=== PATIENT | male | born 1950 | race Caucasian/White ===

== ENCOUNTER 2016-08-18 15:46 | Outpatient (CLI) | payer OTHER | END 2016-08-18 15:47 | disposition home or self-care (01) | LOC: SC 15:46 | PROVIDERS: ATTEND Nurse Practitioner Family | DX: G47.33 Obstructive sleep apnea (adult) (pediatric) (principal) | CPT/HCPCS: 99212; 99213 ==

== ENCOUNTER 2017-02-06 17:22 | Outpatient (CLI) | payer OTHER | END 2017-02-06 17:23 | disposition critical access hospital (66) | LOC: EMS 17:22 | PROVIDERS: ATTEND Surgery | DX: R00.8 Other abnormalities of heart beat (principal) | CPT/HCPCS: A0425; A0427 ==

== ENCOUNTER 2017-02-06 18:14 | Emergency (ER) | payer OTHER ==
[2017-02-06] MEDS ORDERED: SODIUM CHLORIDE 0.9% 1,000 ML IV ONE (18:21)
--- NOTE | 2017-02-06 18:23 | ED Physician Documentation ---
History of Present Illness - Stated complaint Stated Complaint: AFIB/CP - Chief complaint Chief Complaint: Cardiac - History obtained from History obtained from: Patient - History of Present Illness Timing: Today Pain level max: 0 Pain level now: 0 Improved by: nothing Worsened by: nothing - Additonal information Additional information: Patient is a 66-year-old male who presents to the emergency department with paroxysmal atrial fibrillation. States this happens a few times a year. [place] himself entered the atrial fibrillation for approximately 4:00 today. He is not anticoagulated. No chest pain, no shortness of breath. Did feel slightly lightheaded. Also had decreased appetite which is normally how he feels when he goes into atrial fib. EMS arrived, heart rate 150-160s, given Cardizem and rate slowed. Currently states that he is feeling better. Review of Systems Constitutional: denies: Fever, Chills Nose: denies: Rhinorrhea / runny nose, Congestion Respiratory: denies: Cough GI: denies: Nausea, Vomiting, Diarrhea : denies: Dysuria Skin: denies: Rash Musculoskeletal: denies: Neck pain, Back pain Neurologic: denies: Headache PD PAST MEDICAL HISTORY - Past Medical History Past Medical History: Yes Cardiovascular: High cholesterol, Atrial fibrillation : Benign prostate hypertrophy - Past Surgical History Past Surgical History: Yes Ortho: Knee replacement - Present Medications Home Medications: Ambulatory Orders Medication Instructions Recorded Confirmed Aspirin 81 mg PO DAILY 02/06/17 02/06/17 Simvastatin 20 mg PO DAILY 02/06/17 02/06/17 Tamsulosin HCl [Flomax] 0.4 mg PO DAILY 02/06/17 02/06/17 [id number] CD [Cardizem Cd] 120 mg PO DAILY 02/06/17 02/06/17 - Allergies Allergies/Adverse Reactions: Allergies Allergy/AdvReac Type Severity Reaction Status Date / Time No Known Drug Allergies Allergy Verified 02/06/17 18:17 - Social History Does the pt smoke?: No Smoking Status: Never smoker Does the pt have substance abuse?: No PD ED PE NORMAL - Vitals Vital signs reviewed: Yes - General General: Alert and oriented X 3, No acute distress - HEENT HEENT: Moist mucous membranes - Neck Neck: Supple, no meningeal sign - Cardiac Cardiac: Strong equal pulses, Other (irregular, tachycardic) - Respiratory Respiratory: No respiratory distress, Clear bilaterally - Abdomen Abdomen: Soft, Non tender, Non distended - Derm Derm: Warm and dry - Neuro Neuro: Alert and oriented X 3 - Psych Psych: Normal mood, Normal affect Results - Vitals Vitals: Vital Signs - 24 hr 02/06/17 02/06/17 02/06/17 18:13 18:35 18:39 Temperature 37.0 C Heart Rate 78 134 H 123 H Respiratory 18 16 17 Rate Blood Pressure 124/77 101/53 L 91/65 O2 Saturation 96 96 96 02/06/17 02/06/17 02/06/17 18:42 18:59 19:17 Temperature 37.0 C Heart Rate 124 H 112 H 20 L Respiratory 16 17 18 Rate Blood Pressure 107/78 99/65 104/63 O2 Saturation 97 96 100 02/06/17 19:18 Temperature Heart Rate 78 Respiratory 18 Rate Blood Pressure 104/63 O2 Saturation 100 Oxygen O2 Source Room air - EKG (time done) 1814 Rate: Rate (enter#) (137) Rhythm: Atrial fibrillation (with rVR) [place]: Normal QRS: Normal Ischemia: Normal ST segments Computer interpretation: Agree with computer 1910 Rate: Rate (enter#) (80) Rhythm: NSR [place]: Normal Intervals: Normal [place] QRS: Normal Ischemia: Normal ST segments Computer interpretation: Agree with computer - Labs Labs: Laboratory Tests 02/06/17 02/06/17 02/06/17 18:31 18:31 18:31 WBC 9.1 RBC 5.41 Hgb 14.7 Hct 44.8 MCV 82.9 MCH 27.3 MCHC 32.9 RDW 14.8 Plt Count 162 MPV 8.9 Neut # 8.3 H Lymph # 0.4 L [place] # 0.3 Eos # 0.0 Baso # 0.0 Absolute Nucleated RBC 0.00 Nucleated RBC % 0.0 Sodium 135 Potassium 3.8 Chloride 105 Carbon Dioxide 20 L Anion Gap 10.0 BUN 16 Creatinine 1.0 Estimated GFR (MDRD) 75 L Glucose 106 H Calcium 8.6 Phosphorus 2.3 L Magnesium 1.8 Total Bilirubin 0.7 AST 32 ALT 32 Alkaline Phosphatase 71 Troponin I < 0.04 Total Protein 6.7 Albumin 4.0 Globulin 2.7 Albumin/Globulin Ratio 1.5 Lipase 25 PD MEDICAL DECISION MAKING - ED course Complexity details: reviewed results, re-evaluated patient, considered differential, d/w patient, d/w family ED course: Patient is a 66-year-old male who presents to the emergency department with atrial fibrillation with rapid ventricular response. Rate decreased with Cardizem with EMS. He was then converted chemically in the emergency department with procainamide. Patient is back in a sinus rhythm. Is asymptomatic. Never had chest pain. We will have him follow-up with his doctor for further evaluation and care. No significant lab findings. Patient and family counseled regarding signs and symptoms for which I believe and urgent re-evaluation would be necessary. Patient with good understanding of and agreement to plan and is comfortable going home at this time This document was made in part using voice recognition software. While efforts are made to proofread this document, sound alike and grammatical errors may occur. Departure - Departure Disposition: 01 Home, Self Care Clinical Impression: Atrial fibrillation with RVR Atrial fibrillation Qualifiers: Atrial fibrillation type: paroxysmal Qualified Code(s): I48.0 - Paroxysmal atrial fibrillation Condition: Good Instructions: ED Afib Follow-Up: Clay Ford MD [Primary Care Provider] - Within 1 week Comments: Return if you worsen. You converted back to sinus rhythm tonight with procainamide. Continue your normal home medications. Discharge Date/Time: 02/06/17 19:45
[2017-02-06] MEDS ORDERED: PROCAINAMIDE 1,000 MG/10 ML SYRINGE ONE (18:31)
[2017-02-06 18:37] LABS: BASOPHILS % (AUTO) 0.2 %; EOSINOPHILS % (AUTO) 0.5 %; HCT - HEMATOCRIT 44.8 % (42.0-52.0); HGB - HEMOGLOBIN 14.7 g/dL (14.0-18.0); LYMPHOCYTES # (AUTO) 0.4 10^3/uL (1.5-3.5); LYMPHOCYTES % (AUTO) 4.2 %; MEAN CORPUSCULAR HEMOGLOBIN 27.3 pg (27.0-31.0); MEAN CORPUSCULAR HGB CONC 32.9 g/dL (32.0-36.0); MEAN CORPUSCULAR VOLUME 82.9 fL (80.0-94.0); MEAN PLATELET VOLUME 8.9 fL (7.4-11.4); MONOCYTES # (AUTO) 0.3 10^3/uL (0.0-1.0); MONOCYTES % (AUTO) 3.8 %; NEUTROPHILS # (AUTO) 8.3 10^3/uL (1.5-6.6); NEUTROPHILS % (AUTO) 91.3 %; RED BLOOD COUNT 5.41 10^6/uL (4.70-6.10); RED CELL DISTRIBUTION WIDTH 14.8 % (12.0-15.0); UNCORRECTED WHITE BLOOD COUNT 9.1 x10^3/uL; WHITE BLOOD COUNT 9.1 x10^3/uL (4.8-10.8)
[2017-02-06] MEDS ORDERED: ASPIRIN CHEW 81 MG TABLET PO STA (18:43)
[2017-02-06 18:55] LABS: ALBUMIN/GLOBULIN RATIO 1.5 (1.0-2.2); BILIRUBIN,TOTAL 0.7 mg/dL (0.2-1.0); CALCIUM 8.6 mg/dL (8.5-10.3); MAGNESIUM 1.8 mg/dL (1.7-2.8); PHOSPHORUS 2.3 mg/dL (2.5-4.6); POTASSIUM 3.8 mmol/L (3.5-5.0); TOTAL PROTEIN 6.7 g/dL (6.7-8.2)
[2017-02-06] MEDS ORDERED: ASPIRIN CHEW 81 MG TABLET ONE (18:57)
[2017-02-06] MEDS ORDERED: PROCAINAMIDE 1,000 MG in SODIUM CHLORIDE 0.9% 240 ML IV SCH (19:00)
[2017-02-06 19:18] VITALS: BP 104/63
== END 2017-02-06 19:45 | disposition home or self-care (01) ==
LOC: EDUNIT# → ED 18:14
DX: I48.0 Paroxysmal atrial fibrillation (principal); E78.00 Pure hypercholesterolemia, unspecified; N40.0 Benign prostatic hyperplasia without lower urinary tract symptoms; Z79.82 Long term (current) use of aspirin
CPT/HCPCS: 36415; 80053; 83690; 83735; 84100; 84484; 85025; 93005; 99284; A9270

== ENCOUNTER 2017-02-08 02:11 | Outpatient (CLI) | payer OTHER | END 2017-02-08 02:12 | disposition critical access hospital (66) | LOC: EMS 02:11 | PROVIDERS: ATTEND Surgery | DX: R00.2 Palpitations (principal) | CPT/HCPCS: A0425; A0427 ==

== ENCOUNTER 2017-02-08 02:37 | Emergency (ER) | payer OTHER ==
[2017-02-08] MEDS ORDERED: PROCAINAMIDE 1,000 MG in SODIUM CHLORIDE 0.9% 240 ML IV STA (02:45)
[2017-02-08] MEDS ORDERED: PROCAINAMIDE 1,000 MG/10 ML SYRINGE ONE (02:54)
[2017-02-08 03:02] LABS: BASOPHILS # (AUTO) 0.1 10^3/uL (0.0-0.1); BASOPHILS % (AUTO) 1.2 %; EOSINOPHILS # (AUTO) 0.1 10^3/uL (0.0-0.7); EOSINOPHILS % (AUTO) 2.6 %; HCT - HEMATOCRIT 41.9 % (42.0-52.0); HGB - HEMOGLOBIN 13.6 g/dL (14.0-18.0); LYMPHOCYTES % (AUTO) 19.3 %; MEAN CORPUSCULAR HEMOGLOBIN 26.8 pg (27.0-31.0); MEAN CORPUSCULAR HGB CONC 32.5 g/dL (32.0-36.0); MEAN CORPUSCULAR VOLUME 82.4 fL (80.0-94.0); MONOCYTES # (AUTO) 0.6 10^3/uL (0.0-1.0); NEUTROPHILS # (AUTO) 3.5 10^3/uL (1.5-6.6); NEUTROPHILS % (AUTO) 64.9 %; NUCLEATED RED BLOOD CELLS AUTO 0.1 /100WBC; RED BLOOD COUNT 5.08 10^6/uL (4.70-6.10); UNCORRECTED WHITE BLOOD COUNT 5.3 x10^3/uL; WHITE BLOOD COUNT 5.3 x10^3/uL (4.8-10.8)
[2017-02-08 03:13] LABS: ALBUMIN/GLOBULIN RATIO 1.4 (1.0-2.2); BILIRUBIN,TOTAL 0.5 mg/dL (0.2-1.0); CALCIUM 8.5 mg/dL (8.5-10.3); CREATININE 0.9 mg/dL (0.6-1.2); MAGNESIUM 1.9 mg/dL (1.7-2.8); PHOSPHORUS 2.9 mg/dL (2.5-4.6); POTASSIUM 3.4 mmol/L (3.5-5.0); TOTAL PROTEIN 6.5 g/dL (6.7-8.2)
--- NOTE | 2017-02-08 03:13 | ED Physician Documentation ---
PD HPI CHEST PAIN - Stated complaint Stated Complaint: PALPITATIONS - Chief complaint Chief Complaint: Cardiac - History obtained from History obtained from: Patient, EMS - History of Present Illness Timing - onset: Today Timing - onset during: Rest Timing - details: Abrupt onset, Still present Worsened by: Palpation Associated symptoms: No: Shortness of air, Diaphoresis, Nausea, Vomiting, Feeling faint / dizzy Similar symptoms before: Work up / diagnostics, Treatment Recently seen: Emergency Dept - Additional information Additional information: Patient is a 66 year old male with a history of Afib who is presenting to the emergency department for rapid heart rate. Patient states that he woke up from sleep and flet like his heart was racing so he called ems. ems states that his initial heart rate was between 110 to 170. Patient denied any chest pain, shortness of breath or other complaints. Review of Systems Constitutional: denies: Fever, Chills Eyes: reports: Reviewed and negative Ears: reports: Reviewed and negative Nose: reports: Reviewed and negative Throat: reports: Reviewed and negative Cardiac: reports: Palpitations. denies: Chest pain / pressure, Pedal edema, Calf pain Respiratory: denies: Dyspnea, Cough, Wheezing GI: denies: Nausea, Vomiting : reports: Reviewed and negative Skin: denies: Rash, Lesions Musculoskeletal: denies: Neck pain, Back pain, Extremity pain Neurologic: denies: Generalized weakness, Focal weakness Immunocompromised: denies: Immunocompromised PD PAST MEDICAL HISTORY - Past Medical History Past Medical History: Yes Cardiovascular: High cholesterol, Atrial fibrillation : Benign prostate hypertrophy - Past Surgical History Past Surgical History: Yes Ortho: Knee replacement - Present Medications Home Medications: Ambulatory Orders Medication Instructions Recorded Confirmed Aspirin 81 mg PO DAILY 02/06/17 02/08/17 Simvastatin 20 mg PO DAILY 02/06/17 02/08/17 Tamsulosin HCl [Flomax] 0.4 mg PO DAILY 02/06/17 02/08/17 [email or web address] CD [Cardizem Cd] 120 mg PO DAILY 02/06/17 02/08/17 - Allergies Allergies/Adverse Reactions: Allergies Allergy/AdvReac Type Severity Reaction Status Date / Time No Known Drug Allergies Allergy Verified 02/08/17 02:41 - Social History Does the pt smoke?: No Smoking Status: Never smoker Does the pt drink ETOH?: Yes Does the pt have substance abuse?: No - POLST Patient has POLST: No PD ED PE NORMAL - Vitals Vital signs reviewed: Yes - General General: Alert and oriented X 3, No acute distress, Well developed/nourished - HEENT HEENT: Atraumatic, PERRL, Moist mucous membranes - Neck Neck: Supple, no meningeal sign, No JVD - Respiratory Respiratory: No respiratory distress, Clear bilaterally - Abdomen Abdomen: Soft, Non tender, Non distended - Derm Derm: Normal color, Warm and dry, No rash - Extremities Extremities: No deformity, No edema, No calf tenderness / cord - Neuro Neuro: Alert and oriented X 3, No motor deficit, No sensory deficit, Normal speech Eye Opening: Spontaneous Motor: Obeys Commands Verbal: Oriented GCS Score: 15 - Psych Psych: Normal mood PD ED PE EXPANDED - Cardiac Cardiac: Tachy, Irregularly irregular Results - Vitals Vitals: Vital Signs - 24 hr 02/08/17 02/08/17 02/08/17 02:37 03:07 03:20 Temperature 36.8 C Heart Rate 158 H 155 H 81 Respiratory 18 17 16 Rate Blood Pressure 121/95 H 96/71 112/70 O2 Saturation 96 97 97 02/08/17 03:41 Temperature Heart Rate 81 Respiratory 15 Rate Blood Pressure 113/74 O2 Saturation 97 Oxygen O2 Source Room air - EKG (time done) 0240 Rate: Rate (enter#) (155) Rhythm: Atrial fibrillation [place]: Normal Intervals: Normal [place] Ischemia: ST depression Compare to prior EKG: Changed from prior EKG 0325 Rate: Rate (enter#) (80) [place]: Normal Intervals: Normal [place] QRS: Normal Ischemia: Normal ST segments Compare to prior EKG: Changed from prior EKG - Labs Labs: Laboratory Tests 02/08/17 02/08/17 02/08/17 02:56 02:56 02:56 WBC 5.3 RBC 5.08 Hgb 13.6 L Hct 41.9 L MCV 82.4 MCH 26.8 L MCHC 32.5 RDW 15.0 Plt Count 160 MPV 9.0 Neut # 3.5 Lymph # 1.0 L [place] # 0.6 Eos # 0.1 Baso # 0.1 Absolute Nucleated RBC 0.00 Nucleated RBC % 0.1 Sodium 138 Potassium 3.4 L Chloride 110 Carbon Dioxide 19 L Anion Gap 9.0 BUN 14 Creatinine 0.9 Estimated GFR (MDRD) 85 L Glucose 96 Calcium 8.5 Phosphorus 2.9 Magnesium 1.9 Total Bilirubin 0.5 AST 28 ALT 28 Alkaline Phosphatase 72 Troponin I < 0.04 Total Protein 6.5 L Albumin 3.8 Globulin 2.7 Albumin/Globulin Ratio 1.4 Lipase 27 TSH 02/08/17 02:56 WBC RBC Hgb Hct MCV MCH MCHC RDW Plt Count MPV Neut # Lymph # [place] # Eos # Baso # Absolute Nucleated RBC Nucleated RBC % Sodium Potassium Chloride Carbon Dioxide Anion Gap BUN Creatinine Estimated GFR (MDRD) Glucose Calcium Phosphorus Magnesium Total Bilirubin AST ALT Alkaline Phosphatase Troponin I Total Protein Albumin Globulin Albumin/Globulin Ratio Lipase TSH 3.24 PD MEDICAL DECISION MAKING - ED course Complexity details: reviewed old records, reviewed results, re-evaluated patient , considered differential, d/w patient, d/w family ED course: Patient was seen and examined at bedside. IV access was gained and labs were drawn. ekg was performed and was a fib with rvr. Patient was started on a procainamide drip. In about 40 minutes patient converted. repeat ekg showed nsr. patient remained asymptomatic and was stable for discharge with outpatient follow up. - Critical Care Time(min): 30 Time Includes: Direct patient care, Review records Data interpretation: Labs, Prior EKG, Cardiac output Departure - Departure Disposition: 01 Home, Self Care Clinical Impression: Atrial fibrillation with RVR Condition: Good Instructions: Atrial Fibrillation Dc Follow-Up: Clay Ford MD [Primary Care Provider] - Within 3 Days Comments: You diagnostics today were within normal limits. You A fib has resolved. You should follow up with your pmd for further evaluation and care. You may return to the emergency department at any time for new, worsening or uncontrollable symptoms.
[2017-02-08 03:42] VITALS: BP 113/74
== END 2017-02-08 03:55 | disposition home or self-care (01) ==
LOC: EDUNIT# → ED 02:37 → SUPCPDRO 02:37 → ED 03:55
DX: I48.91 Unspecified atrial fibrillation (principal); R94.31 Abnormal electrocardiogram [ECG] [EKG]; E78.00 Pure hypercholesterolemia, unspecified; Z79.82 Long term (current) use of aspirin
CPT/HCPCS: 36415; 80053; 83690; 83735; 84100; 84443; 84484; 85025; 93005; 96365; 99284; 99291; J2690

== ENCOUNTER 2017-02-21 21:13 | Outpatient (CLI) | payer OTHER | END 2017-02-21 21:14 | disposition critical access hospital (66) | LOC: EMS 21:13 | PROVIDERS: ATTEND Surgery | DX: R00.2 Palpitations (principal) | CPT/HCPCS: A0425; A0427 ==

== ENCOUNTER 2017-02-21 21:40 | Emergency (ER) | payer OTHER ==
[2017-02-21] MEDS ORDERED: SODIUM CHLORIDE 0.9% 1,000 ML IV ONE (22:02)
[2017-02-21 22:05] LABS: BASOPHILS # (AUTO) 0.1 10^3/uL (0.0-0.1); BASOPHILS % (AUTO) 1.4 %; EOSINOPHILS # (AUTO) 0.2 10^3/uL (0.0-0.7); EOSINOPHILS % (AUTO) 2.9 %; HGB - HEMOGLOBIN 14.7 g/dL (14.0-18.0); LYMPHOCYTES # (AUTO) 1.5 10^3/uL (1.5-3.5); LYMPHOCYTES % (AUTO) 21.3 %; MEAN CORPUSCULAR HEMOGLOBIN 26.8 pg (27.0-31.0); MEAN CORPUSCULAR HGB CONC 32.6 g/dL (32.0-36.0); MEAN CORPUSCULAR VOLUME 82.1 fL (80.0-94.0); MEAN PLATELET VOLUME 9.2 fL (7.4-11.4); MONOCYTES # (AUTO) 0.8 10^3/uL (0.0-1.0); MONOCYTES % (AUTO) 10.9 %; NEUTROPHILS # (AUTO) 4.5 10^3/uL (1.5-6.6); NEUTROPHILS % (AUTO) 63.5 %; RED BLOOD COUNT 5.48 10^6/uL (4.70-6.10); RED CELL DISTRIBUTION WIDTH 15.1 % (12.0-15.0)
[2017-02-21 22:12] LABS: PT - PROTHROMBIN TIME 10.9 secs (9.9-12.6)
[2017-02-21 22:16] LABS: ALBUMIN/GLOBULIN RATIO 1.7 (1.0-2.2); BILIRUBIN,TOTAL 0.4 mg/dL (0.2-1.0); CALCIUM 8.8 mg/dL (8.5-10.3); CREATININE 1.3 mg/dL (0.6-1.2); MAGNESIUM 2.3 mg/dL (1.7-2.8); PHOSPHORUS 2.7 mg/dL (2.5-4.6); POTASSIUM 3.6 mmol/L (3.5-5.0); TOTAL PROTEIN 6.9 g/dL (6.7-8.2)
[2017-02-21] MEDS ORDERED: PHENYTOIN 100 MG/2 ML VIAL IVP STA (22:44)
[2017-02-21] MEDS ORDERED: diltiaZEM INJ 5 MG/ML VIAL ONE (22:51)
[2017-02-21] MEDS ORDERED: diltiaZEM INJ 5 MG/ML VIAL IVP STA (22:53)
[2017-02-21 23:03] VITALS: BP 109/70
--- NOTE | 2017-02-21 23:07 | ED Physician Documentation ---
PD HPI CHEST PAIN - Stated complaint Stated Complaint: AFIB - Chief complaint Chief Complaint: Cardiac - History obtained from History obtained from: Patient, Family, EMS - History of Present Illness Timing - onset: Today Timing - onset during: Rest Timing - details: Abrupt onset, Now resolved Improved by: Other medication Associated symptoms: Palpitations. No: Shortness of air, Diaphoresis, Feeling faint / dizzy Similar symptoms before: Work up / diagnostics, Treatment Recently seen: Emergency Dept - Additional information Additional information: Patient is a 66 year old male with a history of a fib who is presenting to the emergency department for an elevated heart rate. Patient states that he was sitting down when he felt his heart racing. Patient called ems. While enroute patient's rate fluctuated between 110 and 140. Patient has been in the emergency department three times in the last few weeks with similar episodes. patient states that he has not taken his medication yet tonight. Patient denies any chest pain, shortness of breath or inciting events. Review of Systems Constitutional: denies: Fever, Chills Eyes: reports: Reviewed and negative Ears: reports: Reviewed and negative Nose: reports: Reviewed and negative Throat: denies: Sore throat Cardiac: reports: Palpitations. denies: Chest pain / pressure, Pedal edema Respiratory: denies: Dyspnea, Cough, Wheezing GI: denies: Nausea, Vomiting : reports: Reviewed and negative Skin: denies: Rash Musculoskeletal: denies: Extremity pain, Extremity swelling Neurologic: denies: Near syncope, Syncope, Headache, Head injury Psychiatric: reports: Reviewed and negative Immunocompromised: denies: Immunocompromised PD PAST MEDICAL HISTORY - Past Medical History Past Medical History: Yes Cardiovascular: High cholesterol, Atrial fibrillation : Benign prostate hypertrophy - Past Surgical History Past Surgical History: Yes Ortho: Knee replacement - Present Medications Home Medications: Ambulatory Orders Medication Instructions Recorded Confirmed Aspirin 81 mg PO DAILY 02/06/17 02/21/17 Simvastatin 20 mg PO DAILY 02/06/17 02/21/17 Tamsulosin HCl [Flomax] 0.4 mg PO DAILY 02/06/17 02/21/17 [email or web address] CD [Cardizem Cd] 120 mg PO DAILY 02/06/17 02/21/17 - Allergies Allergies/Adverse Reactions: Allergies Allergy/AdvReac Type Severity Reaction Status Date / Time No Known Drug Allergies Allergy Verified 02/21/17 21:45 - Social History Does the pt smoke?: No Smoking Status: Never smoker Does the pt drink ETOH?: Yes Does the pt have substance abuse?: No - Immunizations Immunizations are current?: Yes - POLST Patient has POLST: No PD ED PE NORMAL - Vitals Vital signs reviewed: Yes - General General: Alert and oriented X 3, No acute distress, Well developed/nourished - HEENT HEENT: Atraumatic, PERRL, Pharynx benign - Neck Neck: Supple, no meningeal sign, No JVD - Respiratory Respiratory: No respiratory distress, Clear bilaterally - Abdomen Abdomen: Soft, Non tender, Non distended - Derm Derm: Normal color, Warm and dry, No rash - Extremities Extremities: No deformity - Neuro Neuro: Alert and oriented X 3, No motor deficit, No sensory deficit, Normal speech Eye Opening: Spontaneous Motor: Obeys Commands Verbal: Oriented GCS Score: 15 - Psych Psych: Normal mood PD ED PE EXPANDED - Cardiac Cardiac: Tachy, Irregularly irregular Results - Vitals Vitals: Vital Signs - 24 hr 02/21/17 02/21/17 02/21/17 21:43 21:45 21:49 Temperature 36.6 C 36.6 C Heart Rate 90 103 H Respiratory 18 15 Rate Blood Pressure 132/87 H 132/87 H O2 Saturation 95 98 02/21/17 02/21/17 02/21/17 22:27 22:47 22:58 Temperature Heart Rate 103 H 116 H 95 Respiratory 14 16 14 Rate Blood Pressure 139/78 H 122/84 H 110/73 O2 Saturation 97 97 96 02/21/17 23:01 Temperature Heart Rate 89 Respiratory 12 Rate Blood Pressure 109/70 O2 Saturation 97 Oxygen O2 Source Room air - EKG (time done) 2146 Rate: Rate (enter#) (96) Rhythm: Atrial fibrillation [place]: Normal Intervals: Normal [place] Compare to prior EKG: Unchanged from prior EKG - Labs Labs: Laboratory Tests 02/21/17 02/21/17 02/21/17 21:58 21:58 21:58 WBC 7.0 RBC 5.48 Hgb 14.7 Hct 45.0 MCV 82.1 MCH 26.8 L MCHC 32.6 RDW 15.1 H Plt Count 193 MPV 9.2 Neut # 4.5 Lymph # 1.5 [place] # 0.8 Eos # 0.2 Baso # 0.1 Absolute Nucleated RBC 0.00 Nucleated RBC % 0.0 PT 10.9 INR 1.0 APTT 28.0 Sodium 137 Potassium 3.6 Chloride 106 Carbon Dioxide 25 Anion Gap 6.0 BUN 19 Creatinine 1.3 H Estimated GFR (MDRD) 56 L Glucose 79 Calcium 8.8 Phosphorus 2.7 Magnesium 2.3 Total Bilirubin 0.4 AST 26 ALT 31 Alkaline Phosphatase 72 Troponin I B-Natriuretic Peptide Total Protein 6.9 Albumin 4.3 Globulin 2.6 Albumin/Globulin Ratio 1.7 Lipase 33 TSH 02/21/17 02/21/17 02/21/17 21:58 21:58 21:58 WBC RBC Hgb Hct MCV MCH MCHC RDW Plt Count MPV Neut # Lymph # [place] # Eos # Baso # Absolute Nucleated RBC Nucleated RBC % PT INR APTT Sodium Potassium Chloride Carbon Dioxide Anion Gap BUN Creatinine Estimated GFR (MDRD) Glucose Calcium Phosphorus Magnesium Total Bilirubin AST ALT Alkaline Phosphatase Troponin I < 0.04 B-Natriuretic Peptide 16 Total Protein Albumin Globulin Albumin/Globulin Ratio Lipase TSH 1.63 PD MEDICAL DECISION MAKING - ED course Complexity details: reviewed old records, reviewed results, re-evaluated patient , considered differential, d/w patient, d/w family, d/w aviation consultant ED course: Patient was seen and examined at bedside. ekg was performed and showed patient was in a fib, but the rate was only 96. IV access was gained, labs were drawn. Patient was placed on a monitor and given a fluid bolus. When patient's labs came back they were within normal limits aside from a slight bump in creatinine but patient had received IV fluids. Patient was treated with a second dose of diltiazem and his heart rate remained around 80bpm. patient required no further inpatient work up at this time and was stable for discharge with outpatient follow up. Departure - Departure Disposition: 01 Home, Self Care Clinical Impression: Atrial fibrillation with RVR Condition: Good Instructions: Atrial Fibrillation Dc Follow-Up: Clay Ford MD [Primary Care Provider] - Tomorrow Comments: Your symptoms today are being caused by A-fib. Otherwise your diagnostics were within normal limits. there were no major lab abnormalities. It is important that you follow up with your doctor tomorrow and try to move up your appointment with the marketing professional, and possible a medication change. You can return to the emergency department at any time for new, worsening or uncontrollable symptoms.
== END 2017-02-21 23:27 | disposition home or self-care (01) ==
LOC: EDUNIT# → ED 21:40
DX: I48.91 Unspecified atrial fibrillation (principal); E78.00 Pure hypercholesterolemia, unspecified; Z96.659 Presence of unspecified artificial knee joint; Z79.82 Long term (current) use of aspirin
CPT/HCPCS: 36415; 80053; 83690; 83735; 83880; 84100; 84443; 84484; 85025; 85610; 85730; 93005; 96374; 99284; 99285

== ENCOUNTER 2017-09-05 15:16 | Outpatient (CLI) | payer OTHER | END 2017-09-05 15:17 | disposition home or self-care (01) | LOC: SC 15:16 | PROVIDERS: ATTEND Nurse Practitioner Family | DX: G47.33 Obstructive sleep apnea (adult) (pediatric) (principal) | CPT/HCPCS: 99212; 99214 ==

== ENCOUNTER 2019-02-19 15:45 | Outpatient (CLI) | payer OTHER ==
[2019-02-19 16:29] VITALS: BP 108/68
--- NOTE | 2019-02-19 16:29 | SLEEP CARE CONSULTATION ---
Information from patient questionnaire entered by Hamida Hull. I have reviewed and concur with the information entered by Hamida Hull. This document represents the service I personally performed and the decisions made by me, Steph Dewitt, RN, MSN, CHIEF MECHANICAL ENGINEER. History of Present Illness Previous diagnosis: Mild, Obstructive Sleep Apnea-Hypopnea Syndrome AHI: 14 Reason for follow up: annual Equipment type: CPAP Equipment obtained from: [employer] Mask style: Full face Mask brand: Resmed Backup mask available: Yes Last cushion change: 2 months ago Prior sleep studies: Yes CPAP Compliance Data - Data Reviewed with Patient Average duration of nightly device use: 7h 35m Compliance rate %: 84 Current pressure setting (cmH2O): 9 Average residual AHI: 1.5 Average large leak: 15 liters per minute Subjective Missed days of use due to: reports: other (using old CPAP at cabin) Patient concerns: reports: nasal congestion ( intermittent and does not interfere with use of CPAP. ). denies: aerophagia, mask discomfort, air blowing in eyes, mask leak noise, condensation in mask/hose, dry mouth, nose, throat, epistaxis Observed to snore while using device: Yes (rare ) Current pressure setting perceived as: comfortable On therapy, patient: reports: sleeping better, more rested overall. denies: drowsiness while driving Initial [place] Sleepiness Scale score: 9 Current [place] Sleepiness Scale score: 9 Allergies and Home Medications Known drug allergies: No Home medication list reviewed: Yes Allergy and home medication list: Medication Name (generic/name brand) Strength & Dosage Multivitamins Tabs Tab one daily Vitamin C 1000mg tab one daily Coenzyme Q10 200mg tab one daily Vitamin D 1000unit tab one daily Flax Seed Oil 1000mg cap two daily Turmeric 1000mg tab one daily Atorvastatin 20mg tab one daily at bedtime Aspirin EC 81mg tab one daily Tamsulosin HCL 0.4mg cap one daily Flecainide Acetate 100mg tab one twice daily Metoprolol Succinate ER 25mg tab one half daily Review of Systems Review of systems same as previous: No (Some molars pulled and getting ready for implant. ) Physical Exam Blood Pressure: 108/68 Cuff size: long Heart Rate: 70 O2 Saturation: 98 Height: 6 ft 1 in Weight: 239 lb 6.4 oz Weight change since last visit: lost 11 pounds Body Mass Index: 31.6 BMI Classification: Obesity Class 1 Impression and Plan 1. Obstructive Sleep Apnea-Hypopnea Syndrome, moderate, with good treatment compliance and good apnea control. On CPAP therapy, the patient has better sleep quality and is more rested overall. He has lost about 11 pounds and plans on losing about 15 pounds more. Thus I explained how his weight loss could reduce his apnea and CPAP pressure and overall health risks. He declined placing on an autoCPAP pressure range to accomodate for weight loss. Thus he was advised of symptoms to report for future pressure change. Patient's apnea severity and rationale for treatment to reduce apnea, improve sleep quality and reduce cardiovascular and cerebrovascular events was reviewed. I also reviewed the benefit of consistent device use of CPAP for arrhythmia. * * Continue CPAP pressure at 9 cmH2O * Notify me if snoring with mask or feeling that the pressure is too much or too little * Continue to lose weight * Return for follow up in 1year , or sooner if concerns arise I spent 100% of this 20 minute visit face to face with the patient with greater than 50% of this was spent time counseling the patient and coordination of care.
== END 2019-02-19 15:46 | disposition home or self-care (01) ==
LOC: SC 15:45
PROVIDERS: ATTEND Nurse Practitioner Family
DX: G47.33 Obstructive sleep apnea (adult) (pediatric) (principal); E66.9 Obesity, unspecified; Z68.31 Body mass index [BMI] 31.0-31.9, adult
CPT/HCPCS: 99212; 99213

== ENCOUNTER 2019-03-01 08:18 | Day surgery (SDC) | payer OTHER ==
[~2019-03-01 08:18] MED LIST: SODIUM/POTASSIUM/MAG SULFATES 354 ML PREP KIT PO SCH
[2019-03-01] MEDS ORDERED: LACTATED RINGERS 1,000 ML IV ONE (08:25)
[2019-03-01] MEDS ORDERED: MIDAZOLAM 2 MG/2 ML VIAL IVP ONE (10:08)
[2019-03-01] MEDS ORDERED: fentaNYL 250 MCG/5 ML VIAL IVP ONE (10:08)
[2019-03-01 11:18] VITALS: BP 130/62
== END 2019-03-01 08:19 | disposition home or self-care (01) ==
LOC: SDS 08:18
PROVIDERS: ATTEND Surgery
PROC: 0DBP8ZX Excision of Rectum, Via Natural or Artificial Opening Endoscopic, Diagnostic (ICD-10-PCS; principal; 2019-03-01 09:45)
DX: Z12.11 Encounter for screening for malignant neoplasm of colon (principal); D12.8 Benign neoplasm of rectum; Z79.82 Long term (current) use of aspirin; I48.91 Unspecified atrial fibrillation; E78.5 Hyperlipidemia, unspecified; E03.9 Hypothyroidism, unspecified; G47.30 Sleep apnea, unspecified; K21.9 Gastro-esophageal reflux disease without esophagitis
CPT/HCPCS: 45380; A9270; J3010; J7120

== ENCOUNTER 2020-03-05 12:07 | Outpatient (CLI) | payer MEDICARE, BC ==
--- NOTE | 2020-03-05 09:20 | SLEEP CARE CONSULTATION ---
Information from patient questionnaire entered by Zahira Benoit. I have reviewed and concur with the information entered by Zahira Benoit. This document represents the service I personally performed and the decisions made by me, Steph Dewitt, RN, MSN, [employer]. History of Present Illness Service Date and Time: 03/05/2020 0900 Previous diagnosis: Mild, Obstructive Sleep Apnea-Hypopnea Syndrome AHI: 14 (in 2008) Reason for follow up: annual (last seen 02/2019) Equipment type: CPAP Equipment obtained from: Other ([employer] -getting supplies as needed and needs updated prescription.) Mask style: Full face Backup mask available: Yes (old mask ) Last cushion change: 2 months ago Prior sleep studies: Yes Year and Where: 2008 - [facility] sleep Type of Sleep Study: Polysomnography CPAP Compliance Data - Data Reviewed with Patient Average duration of nightly device use: 7 hr 47min Compliance rate %: 86 (180 days) Current pressure setting (cmH2O): 9 Humidity settin Heated hose setting: no Average residual AHI: 1.5 Subjective Missed days of use due to: reports: [facility] Patient concerns: reports: mask leak noise (rare - resolves with adjustment- happens when sleeping on side), dry mouth, nose, throat (rare ). denies: aerophagia, mask discomfort, air blowing in eyes, condensation in mask/hose, nasal congestion, epistaxis Observed to snore while using device: Yes (if mask not sealing) Current pressure setting perceived as: comfortable On therapy, patient: reports: sleeping better, awakening more refreshed, being more awake and alert during the day, more rested overall. denies: drowsiness while driving Initial [place] Sleepiness Scale score: 9 (in 2008) Allergies and Home Medications Known drug allergies: No Home medication list reviewed: No (no changes) Review of Systems Review of systems same as previous: Yes (no Changes) Physical Exam Height: 6 ft 1 in Weight: 230 lb (lost 5-10 pounds) Body Mass Index: 30.3 BMI Classification: Obese Impression and Plan 1. Obstructive Sleep Apnea-Hypopnea Syndrome, mild, with good treatment compliance and good apnea control. On CPAP therapy, the patient has better sleep quality and is more rested overall. He continues to be pleased with benefit of treatment. He has lost more weight. Thus I reviewed the effect of continued weight loss to CPAP pressure and offered to adjust his pressure to auto CPAP. He declined pressure change at this time. I reviewed symptoms to report for future pressure change.To reduce mask leaks when sleeping on his side I informed him about a CPAP pillow. The CPAP pillow can can be found online and several styles. Patient's apnea severity and rationale for treatment to reduce apnea, improve sleep quality and reduce cardiovascular and cerebrovascular events was reviewed. I also reviewed the benefit of consistent device use of CPAP for arrhythmia. * Continue CPAP pressure at 9 cmH2O * consider CPAP pillow * Notify me if snoring with mask or feeling that the pressure is too much or too little * Continue to lose weight * Call this office if any problems using CPAP * Return for follow up in 1 year , or sooner if concerns arise Visit Type: Telehealth Phone ([facility]) Patient Location: Home Location of Provider: Home Patient agrees and consents to this telehealth visit type: Yes Patient agrees to have their insurance billed: Yes Time Spent with Patient (minutes): 13 Provider Statement: I spent 100% of the Telehealth Phone Call with the patient with greater than 50% spent counseling the patient and coordination of care.
== END 2020-03-05 12:08 | disposition home or self-care (01) ==
LOC: SC 12:07
PROVIDERS: ATTEND Nurse Practitioner Family
DX: G47.33 Obstructive sleep apnea (adult) (pediatric) (principal); E66.9 Obesity, unspecified; Z68.30 Body mass index [BMI] 30.0-30.9, adult

== ENCOUNTER 2022-01-07 10:59 | Outpatient (CLI) | payer MEDICARE, BC ==
--- NOTE | 2022-01-07 11:49 | SLEEP CARE CONSULTATION ---
Information from patient questionnaire entered by Sarai Tate. I have reviewed and concur with the information entered by Sarai Tate. This document represents the service I personally performed and the decisions made by me, Candace Olivia ARNP. History of Present Illness Service Date and Time: 01/07/2022 1059 Previous diagnosis: Mild, Obstructive Sleep Apnea-Hypopnea Syndrome AHI: 14 (in 2008) Reason for follow up: annual (LAST SEEN 02/2020) Equipment type: CPAP (RESMED) Equipment obtained from: Other ([email or web address] -getting supplies as needed) Mask style: Full face Mask brand: Quattro Backup mask available: Yes (other mask) Last cushion change: couple months Prior sleep studies: Yes Year and Where: 2008 - [facility] sleep Type of Sleep Study: Polysomnography HPI additional information: MIRI BARR was diagnosed to have mild, AHI 14, obstructive sleep apnea-hypopnea syndrome and returned today for CPAP therapy annual follow-up. Sleep Study - Results Type of Sleep Study: Polysomnography Prior sleep studies: Yes Year and Where: 2008 - [facility] sleep CPAP Compliance Data - Data Reviewed with Patient Average duration of nightly device use: 7HRS 45MIN Compliance rate %: 90 (161/180 days used) Current pressure setting (cmH2O): 9 Average residual AHI: 0.8 Average large leak: 14.1 L/min Subjective Missed days of use due to: reports: travel (uses travel CPAP) Patient concerns: denies: aerophagia, mask discomfort, air blowing in eyes, mask leak noise, condensation in mask/hose, nasal congestion, dry mouth, nose, throat, epistaxis Observed to snore while using device: No (rare) Current pressure setting perceived as: comfortable On therapy, patient: reports: sleeping better, awakening more refreshed, being more awake and alert during the day, more rested overall. denies: drowsiness while driving Initial [place] Sleepiness Scale score: 9 (in 2008) Current [place] Sleepiness Scale score: 9 (01/07/2022) Allergies and Home Medications Drug allergies reviewed: Yes (NKDA) Home medication list reviewed: Yes (simvastatin 20 mg added; atorvastatin stopped) Review of Systems Review of systems same as previous: No (right total hip 10/25/2020) Physical Exam Vital signs obtained and entered by: SARAI Garcia MA Blood Pressure: 110/64 (left arm) Cuff size: regular Heart Rate: 68 O2 Saturation: 98 Height: 6 ft 1 in Weight: 240 lb 9.6 oz Body Mass Index: 31.7 BMI Classification: Obese Impression and Plan 1. Obstructive Sleep Apnea-Hypopnea Syndrome, mild, with good treatment compliance and good apnea control. On CPAP therapy, the patient has better sleep quality and is more rested overall. Patient has significant improvement of their sleep apnea and are satisfied with current CPAP therapy. Patient denies problems with oral dryness, nasal congestion, epistaxis, skin irritation or aerophagia. Patient's apnea severity and rationale for treatment to reduce apnea, improve sleep quality and reduce cardiovascular and cerebrovascular events was reviewed. I also reviewed the benefit of consistent device use of CPAP for arrhythmia. 2. Obesity, unspecified. Currently patients BMI is 31.7. Obesity increases the risk of apnea, CPAP pressure requirements and overall health risks especially cardiovascular and diabetes. Thus patient is advised to lose weight. * Continue CPAP pressure at 9 cmH2O * Update supplies * Notify me if snoring with mask or feeling that the pressure is too much or too little * Attempt to lose weight * Call this office if any problems using CPAP * Return for follow up in 1 year, or sooner if concerns arise Counseling Topics: Spare mask, Weight loss health impact Visit Type: In Office Time Spent with Patient (minutes): 20 Provider Statement: I spent 100% of the Face to Face Visit with the patient with greater than 50% spent counseling the patient and coordination of care.
[2022-01-07 11:50] VITALS: BP 110/64
== END 2022-01-07 11:00 | disposition home or self-care (01) ==
LOC: SC 10:59
PROVIDERS: ATTEND Nurse Practitioner Family
DX: G47.33 Obstructive sleep apnea (adult) (pediatric) (principal); E66.9 Obesity, unspecified; Z68.31 Body mass index [BMI] 31.0-31.9, adult
CPT/HCPCS: 99213; G0463; 99212